=== PATIENT | male | born 1985 | race Caucasian/White ===

== ENCOUNTER 2021-04-16 21:15 | Emergency (ER) | payer MEDICAID, MEDICARE ==
[~2021-04-16] VITALS: Ht 172.7 cm; Wt 70.5 kg
[2021-04-17] MEDS ORDERED: LIDOCAINE W/EPINEPHRINE 1% 20ML VIAL As Ordered ONE (00:16)
[2021-04-17] MEDS ORDERED: AUGMENTIN 875 MG TAB PO ONE (01:40)
[2021-04-17] MEDS ORDERED: LIDOCAINE 1% MDV 20ML VIAL SC ONE (01:45)
[2021-04-17] MEDS ORDERED: AUGM875T28 PO (02:22)
[2021-04-17 03:16] VITALS: BP 117/70
== END 2021-04-17 03:17 | disposition home or self-care (01) ==
LOC: M ED 21:15
DX: S41.111A Laceration without foreign body of right upper arm, initial encounter (principal); W54.0XXA Bitten by dog, initial encounter; Y92.9 Unspecified place or not applicable; Y93.9 Activity, unspecified; Y99.9 Unspecified external cause status; F17.200 Nicotine dependence, unspecified, uncomplicated; Z88.8 Allergy status to other drugs, medicaments and biological substances